=== PATIENT | male | born 1960 | race Caucasian/White ===

== ENCOUNTER → 2018-02-26 | Outpatient (CLI) | payer OTHER ==
--- NOTE | 2018-02-26 17:07 | RAD ---
Right shoulder radiograph 02/26/2018 12:00 AM INDICATION: Fall on stairs COMPARISON: None available. TECHNIQUE: 3 views of the right shoulder are provided. FINDINGS: There is no acute fracture or dislocation. Bone mineralization is within normal limits. Mild acromioclavicular and glenohumeral joint space narrowing. Regional soft tissues are within normal limits. There is no soft tissue gas or osseous erosion. IMPRESSION: No acute fracture or dislocation. Electronically signed by: Bella Broussard MD (02/26/2018 5:04 PM) [id number]
== END | disposition home or self-care (01) ==
LOC: RAD 14:36
PROVIDERS: ATTEND General Practice
DX: M25.511 Pain in right shoulder (principal); W10.8XXA Fall (on) (from) other stairs and steps, initial encounter
CPT/HCPCS: 73030

== ENCOUNTER → 2019-04-28 | Outpatient (CLI) | payer OTHER ==
--- NOTE | 2019-04-28 09:48 | RAD ---
EXAM: Chest, 2 views. HISTORY: Short of breath. Cough. COMPARISON: 12/26/2015 FINDINGS: 2 views of the chest are obtained. There are coarse likely chronic interstitial markings. There is no consolidation, pleural effusion or pneumothorax. The heart is normal in size. There is hyperinflation due to inspiratory effort or emphysema. IMPRESSION: Coarse likely chronic interstitial markings. Electronically signed by: Jaki Swenson MD (04/28/2019 9:45 AM) [place] [id number]
== END | disposition home or self-care (01) ==
LOC: DXRAD 09:19
PROVIDERS: ATTEND General Practice
DX: R05 Cough (principal); R06.02 Shortness of breath
CPT/HCPCS: 71046